=== PATIENT | female | born 1965 | race Caucasian/White ===

== ENCOUNTER 2019-01-13 19:18 | Emergency (ER) | payer BC ==
[2019-01-13 19:48] VITALS: BMI 27.8
[2019-01-13 19:57] VITALS: RESP 18; TEMP 98; O2SAT 100
[2019-01-13] MEDS: Sodium Chloride 0.9% 500 ML IV STA (20:34)
[2019-01-13 20:54] LABS: BASO # 0.03 K/mm3 (0.0-2.0); BASO % 0.5 % (0.0-3.0); EOS # 0.1 (0.0-0.7); EOS % 2.2 % (1.5-5.0); HEMOGLOBIN 11.9 g/dL (12.0-16.0); LYMPH # 2.5 (1.2-3.4); LYMPH % 41.5 % (22.0-35.0); MEAN CELL VOLUME 88.5 fl (80.0-105.0); MEAN CORPUSCULAR HGB CONC 31.6 g/dl (31.0-37.0); MEAN PLATELET VOLUME 10.7 fl (7.0-11.0); MONO # 0.4 (0.1-0.6); MONO % 6.5 % (1.0-6.0); RBC 4.25 10^6/uL (3.5-6.1); RED CELL DISTRIBUTION WIDTH 13.2 % (11.5-14.5)
--- NOTE | 2019-01-13 21:21 | ED PDOC ---
Arrival/HPI - General Chief Complaint: Abdominal Pain Time Seen by Provider: 01/13/19 19:23 Historian: Patient - History of Present Illness Narrative History of Present Illness (Text): 01/13/19 21:13 53 year old female, with no significant past medical history, presents to the emergency department with intermittent RUQ pain, since Aug 2017. Patient states the pain has worsened today and describes it as a sharp pain. Patient states pain wraps around the right side of her abdomen to the right back. Patient denies chest pain or shortness of breath. Patient informs no medication was taken at home for the pain. Patient states pain seems to worsen after eating. Patient denies any vomiting, diarrhea, constipation or urinary symptoms but is c/o nausea. Time/Duration: Prior to Arrival, Other (> 1 year ) Symptom Onset: Gradual Quality: Stabbing Activities at Onset: Light Context: Home Past Medical History - Provider Review Nursing Documentation Reviewed: Yes - Travel History Have you recently traveled outside [place] w/in the past 3 mons?: No - Infectious Disease Hx of Infectious Diseases: None - Reproductive Menopause: Yes - Cardiac Hx Cardiac Disorders: No - Pulmonary Hx Respiratory Disorders: No - Neurological Hx Neurological Disorder: No - HEENT Hx HEENT Disorder: No - Renal Hx Renal Disorder: Yes Hx Kidney Stones: Yes - Endocrine/Metabolic Hx Endocrine Disorders: No - Hematological/Oncological Hx Blood Disorders: No - Integumentary Hx Dermatological Disorder: No - Musculoskeletal/Rheumatological Hx Musculoskeletal Disorders: No - Gastrointestinal Hx Gastrointestinal Disorders: No - Genitourinary/Gynecological Hx Genitourinary Disorders: No - Psychiatric Hx Psychophysiologic Disorder: No Hx Substance Use: No - Surgical History Other/Comment: lithotripsy - Anesthesia Hx Anesthesia: Yes Hx Anesthesia Reactions: No Hx Malignant Hyperthermia: No Family/Social History - Physician Review Nursing Documentation Reviewed: Yes Family/Social History: No Known Family HX Smoking Status: Never Smoked Hx Alcohol Use: No Hx Substance Use: No Allergies/Home Meds Allergies/Adverse Reactions: Allergies No Known Allergies Allergy (Verified 01/13/19 19:49) Review of Systems - Physician Review All systems were reviewed & negative as marked: Yes - Review of Systems Constitutional: absent: Fatigue, Fevers Respiratory: absent: SOB, Cough Cardiovascular: absent: Chest Pain, Palpitations Gastrointestinal: Abdominal Pain, Nausea. absent: Constipation, Diarrhea, Vomiting Genitourinary Female: Normal. absent: Urine Output Changes Musculoskeletal: Back Pain. absent: Arthralgias, Neck Pain Skin: absent: Rash, Pruritis Neurological: absent: Headache, Dizziness Psychiatric: absent: Anxiety, Depression Physical Exam Vital Signs Reviewed: Yes Vital Signs Temp Pulse Resp BP Pulse Ox 01/13/19 19:57 98 F 64 18 116/72 100 Temperature: Afebrile Blood Pressure: Normal Pulse: Regular Respiratory Rate: Normal Appearance: Positive for: Well-Appearing, Non-Toxic, Comfortable Pain Distress: None Mental Status: Positive for: Alert and Oriented X 3 - Systems Exam Head: Present: Atraumatic Conjunctiva: Present: Normal Mouth: Present: Moist Mucous Membranes Neck: Present: Normal Range of Motion Respiratory/Chest: Present: Clear to Auscultation, Good Air Exchange. No: Respiratory Distress, Accessory Muscle Use Cardiovascular: Present: Regular Rate and Rhythm, Normal S1, S2. No: Murmurs Abdomen: Present: Tenderness (RUQ), Guarding. No: Distention, Peritoneal Signs, Rebound, McBurney's Point Tender Back: Present: Normal Inspection, CVA Tenderness (Right sided). No: Midline Tenderness Upper Extremity: Present: Normal Inspection Neurological: Present: GCS=15, Speech Normal Skin: Present: Warm, Dry, Normal Color. No: Rashes Psychiatric: Present: Alert, Oriented x 3 Medical Decision Making ED Course and Treatment: 01/13/19 21:36 Impression: 53 year old female presents with RUQ pain. Plan: -- CT ABD & Pelvis -- CMP, Lipase -- Chest X-ray -- Morphine -- Zofran -- Urinalysis -- Urinalysis -- Reassess and disposition Prior Visits: Notes and results from previous visits were reviewed. Progress Notes: 01/13/19 22:32 Patient is nontoxic well appearing with stable vital signs presenting with right abdominal pain pt refused morphine for pain. CBC:wnl CMP: wnl Lipase: wnl Urinalysis: + blood, + leukocytes, + wbcs cxr; wnl Ultrasound: COMMENTS: The liver is of increased echogenicity without evidence of mass or defect measuring 13.16 x 11.51 cm. There is no intra or extrahepatic biliary ductal dilatation. The common bile duct measures 0.35 cm. The gallbladder is physiologically distended without evidence of calculi. The gallbladder wall is not thickened measuring 0.16 cm and there is no pericholecystic fluid. There is no abdominal ascites. The visualized portions of abdominal aorta and inferior vena cava present no abnormalities. The visualized portions of the pancreas are unremarkable. The spleen is of uniform echo texture and does not appear enlarged measuring 9.12 x 3.72 cm. The right kidney measures 9.53 x 3.8 x 5.62 cm and the left kidney measures 10.16 x 4.53 x 5.1 cm. Right renal stone measures 0.31 x 0.17 x 0.2 cm. Left renal stone measures 1.02 x 0.54 x 0.69 cm with mild obstruction. IMPRESSION: 1. Fatty liver. 2. Right renal non-obstructing stone. 3. Left renal mildly obstructing stone. Electronically signed on Jan 13, 2019 9:40:07 PM EDT by: Mansoor Hernandez M.D., FEDE Certified By ABR & CBC[facility] Fellowship Trained MRI and CT Specialist CAT scan: COMMENTS: Uncomplicated colonic diverticulosis. Moderate amount of fecal residue in the large bowels. Hepatic steatosis. Fat containing umbilical hernia without incarceration. Nonobstructing left renal stones with the largest measuring 6 mm. 1.3 cm right renal simple cyst. Mild diffuse thickening of the bladder. The liver is of uniform attenuation without mass or defect. There is no intra or extrahepatic biliary ductal dilatation. The spleen is normal. The gallbladder is within normal limits. The pancreas is of normal contour and attenuation characteristics. There is no evidence of adrenal mass. Both kidneys demonstrate prompt and equal nephrograms. The kidneys are normal in size, shape and configuration. There is no evidence of renal or ureteral mass. No ureteral calculi are identified. There is no hydroureter or hydronephrosis. No evidence for appendicitis. There is no bowel wall thickening. No evidence for small or large bowel obstruction. There is no evidence of abdominal ascites or lymphadenopathy. There is no evidence of intrinsic or extrinsic bladder mass. There is no pelvic ascites or lymphadenopathy. Images of the lung bases show no evidence of pleural or parenchymal mass. There are no pleural effusions. The bony structures are free of lytic or blastic lesions. IMPRESSION: Uncomplicated colonic diverticulosis. Moderate amount of fecal residue in the large bowels. Hepatic steatosis. Fat containing umbilical hernia without incarceration. Nonobstructing left renal stones with the largest measuring 6 mm. 1.3 cm right renal simple cyst. Mild diffuse thickening of the bladder. Thank you for your kind referral of this patient. Electronically signed on Jan 14, 2019 1:55:06 AM EDT by: Regi Huerta M.D., Certified by ABR, MSK, Neuroradiology Patient reassessment: pt feeling better after medications; vitals stable. pt given keflex for pyelonephritis Discussed all results with patient in depth. I advised follow-up with the urologist, the GI specialist and the surgeon within the next 2 days. I advised taking antibiotics as prescribed for possible pyelonephritis. I have advised M otrin every 6 hours as needed for pain and I have advised immediate return if symptoms worsen persist or if new concerning symptoms develop Patient verbalizes understanding of discharge instructions and need for immediate followup. All aspects of this case were discussed the attending of record. Impression: Abdominal pain, pyelonephritis, kidney stone, biliary colic. Motrin every 6 hours as needed for pain Keflex twice daily x 10 days Follow up with primary care physician within the next 2 days Follow-up with the urologist within the next 2 days Follow-up with a GI specialist within the next 2 days Follow-up with the surgeon within the next 2 days Increase fluids Return immediately if symptoms worsen persist or if new symptoms develop: High fevers, increasing pain, vomiting, diarrhea or any other concerning symptoms develop Reassessment Condition: Re-examined, Improved - RAD Interpretation Radiology Orders: 01/13/19 20:03 CHEST PORTABLE [RAD] Stat 01/13/19 20:32 ABDOMEN COMPLETE [US] Stat - Medication Orders Current Medication Orders: Discontinued Medications Sodium Chloride (Sodium Chloride 0.9%) 500 mls @ 999 mls/hr IV .Q31M STA Stop: 01/13/19 20:33 Last Admin: 01/13/19 20:34 Dose: 999 mls/hr eMAR Start Stop Document 01/13/19 20:34 SS (Rec: 01/13/19 20:34 SS [id number]) Intravenous Solution Start Date 01/13/19 Start Time 20:34 End Date 01/13/19 End time 21:04 Total Infusion Time 30 Morphine Sulfate (Morphine) 2 mg IVP STAT STA Stop: 01/13/19 20:34 Ondansetron HCl (Zofran Inj) 4 mg IVP STAT STA Stop: 01/13/19 20:34 - Scribe Statement The provider has reviewed the documentation as recorded by the Veronica Madrigal Provider Scribe Attestation: All medical record entries made by the Zullyibe were at my direction and personally dictated by me. I have reviewed the chart and agree that the record accurately reflects my personal performance of the history, physical exam, medical decision making, and the department course for this patient. I have also personally directed, reviewed, and agree with the discharge instructions and disposition. Disposition/Present on Arrival - Present on Arrival Any Indicators Present on Arrival: No History of DVT/PE: No History of Uncontrolled Diabetes: No Urinary Catheter: No History of Decub. Ulcer: No History Surgical Site Infection Following: None - Disposition Have Diagnosis and Disposition been Completed?: Yes Diagnosis: Pyelonephritis, Abdominal pain, Biliary colic Disposition: HOME/ ROUTINE Disposition Time: 23:50 Patient Plan: Discharge Patient Problems: Current Active Problems Problem Status Onset Abdominal pain Acute Biliary colic Acute Pyelonephritis Acute Condition: GOOD Discharge Instructions (ExitCare): Flank Pain (DC), Kidney Infection (DC), Acute Abdomen (Belly Pain), Adult (DC) Additional Instructions: Motrin every 6 hours as needed for pain Keflex twice daily x 10 days Follow up with primary care physician within the next 2 days Follow-up with the urologist within the next 2 days Follow-up with a GI specialist within the next 2 days Follow-up with the surgeon within the next 2 days Increase fluids Return immediately if symptoms worsen persist or if new symptoms develop: High fevers, increasing pain, vomiting, diarrhea or any other concerning symptoms develop Prescriptions: Cephalexin [Keflex] 500 mg PO BID #20 capsule Ibuprofen [Motrin] 600 mg PO Q6H PRN #20 tab PRN Reason: pain/fever reduction Referrals: Daryl Vazquez MD [Staff Provider] - Follow up with primary Dhruv Naqvi MD [Medical Doctor] - Follow up with primary Ruth Contreras MD [Staff Provider] - Follow up with primary Rogelio Polanco MD [Non-Staff] - Follow up with primary Forms: [facility] (Slovak), WORK NOTE
[2019-01-13] MEDS: Morphine 2 mg/ml ISec IVP STA (21:55)
[2019-01-13 21:57] LABS: PH,URINE 6.5 (4.7-8.0); URINE BILIRUBIN NEGATIVE (NEGATIVE); URINE BLOOD SMALL (NEGATIVE); URINE GLUCOSE (UA) NEGATIVE (NEGATIVE); URINE LEUKOCYTE ESTERASE LARGE Leu/uL (NEGATIVE); URINE PROTEIN NEGATIVE mg/dL (<30 mg/dL); URINE UROBILINOGEN 0.2 E.U./dL (<1 E.U./dL)
[2019-01-13 22:06] LABS: URINE APPEARANCE CLOUDY (CLEAR); URINE COLOR YELLOW (YELLOW)
[2019-01-13 22:20] LABS: URINE BACTERIA MOD /hpf; URINE WBC 25 - 30 /hpf (0-6)
[2019-01-13] MEDS ORDERED: Iohexol 350 MG/100 ML VIAL ONE (22:21)
[2019-01-13 23:50] LABS: ALB/GLOB RATIO 1.3 (1.1-1.8); ALBUMIN 4.2 g/dL (3.0-4.8); ALT/SGPT 29 U/L (7-56); AST/SGOT 22 U/L (14-36); BLOOD UREA NITROGEN 11 mg/dL (7-21); CALCIUM 9.5 mg/dL (8.4-10.5); GFR NON-AFRICAN AMERICAN > 60; LIPASE 109 U/L (23-300)
[2019-01-14 01:33] VITALS: BP 118/79
[2019-01-14 01:46] VITALS: PULSE 65
--- NOTE | 2019-01-14 08:34 | RAD ---
Date of service: 01/13/2019 HISTORY: abd pain COMPARISON: No prior. TECHNIQUE: 1 view obtained. FINDINGS: LUNGS: No active pulmonary disease. PLEURA: No significant pleural effusion identified, no pneumothorax apparent. CARDIOVASCULAR: No aortic atherosclerotic calcification present. Normal cardiac size. No pulmonary vascular congestion. OSSEOUS STRUCTURES: No significant abnormalities. VISUALIZED UPPER ABDOMEN: Normal. OTHER FINDINGS: None. IMPRESSION: No acute cardiopulmonary disease appreciated.
--- NOTE | 2019-01-14 09:43 | CARD ---
APPROVED REPORT Date of service: 01/13/2019 EKG Measurement Heart [id number] [id number] <Conclusion> Normal sinus rhythm Normal ECG
--- NOTE | 2019-01-14 10:04 | CT ---
Date of service: 01/14/2019 PROCEDURE: CT Abdomen and Pelvis with contrast HISTORY: right sided abd pain COMPARISON: None. TECHNIQUE: Contrast dose: 100 cc of Omni 350 Radiation dose: Total exam DLP = 644.7 mGy-cm. This CT exam was performed using one or more of the following dose reduction techniques: Automated exposure control, adjustment of the mA and/or kV according to patient size, and/or use of iterative reconstruction technique. FINDINGS: LOWER THORAX: Unremarkable. LIVER: Unremarkable. No gross lesion or ductal dilatation. Fatty infiltration of the liver GALLBLADDER AND BILE DUCTS: Unremarkable. PANCREAS: Unremarkable. No gross lesion or ductal dilatation. SPLEEN: Unremarkable. ADRENALS: Unremarkable. No mass. KIDNEYS AND URETERS: Unremarkable. No hydronephrosis. No solid mass. Nonobstructing 6 mm stone in the left kidney VASCULATURE: Unremarkable. No aortic aneurysm. No aortic atherosclerotic calcification or mural plaque present. BOWEL: Unremarkable. No obstruction. No gross mural thickening. Mild constipation APPENDIX: Normal appendix. PERITONEUM: Unremarkable. No free fluid. No free air. LYMPH NODES: Unremarkable. No enlarged lymph nodes. BLADDER: Unremarkable. REPRODUCTIVE: Unremarkable. BONES: No acute fracture. OTHER FINDINGS: The report concurs with the preliminary [facility] report IMPRESSION: No acute intra-abdominal findings
--- NOTE | 2019-01-14 10:56 | US ---
Date of service: 01/13/2019 HISTORY: ruq pain COMPARISON: None. TECHNIQUE: Sonographic evaluation of the abdomen. FINDINGS: LIVER: Measures 13.2 cm. Upper limits normal echogenicity of the liver parenchyma and normal directional blood flow is seen at the main portal vein. No mass. No intrahepatic bile duct dilatation. GALLBLADDER: Unremarkable. No gallstones. COMMON BILE DUCT: Measures 3.5 mm. No stones. No dilatation. PANCREAS: Unremarkable as visualized. No mass. No ductal dilatation. RIGHT KIDNEY: Measures 9.5cm. A 3 mm cyst identified at the midpole right kidney with adjacent small calcification in question. Right renal parenchyma is otherwise unremarkable. No obstructive uropathy perinephric fluid collection appreciable. LEFT KIDNEY: Measures 10.2cm. Intrarenal calculus identified at the lower pole left kidney, nonobstructive 1.0 cm greatest dimension. Left kidney is otherwise unremarkable. SPLEEN: Normal in size and contour, measuring 9.1 cm.. No mass. AORTA: No aneurysmal dilatation. IVC: Unremarkable. OTHER FINDINGS: None. IMPRESSION: Intrarenal calculus lower pole left kidney 1 cm greatest dimension nonobstructive. Parenchymal small cyst midpole right kidney with adjacent or possible mural calcification by ultrasound. Examination otherwise unremarkable. Preliminary report provided by Abigail, 01/13/2019, 9:40 p.m.. Discordant with respect to left-sided obstructive uropathy, which I do not see, and fatty liver with liver appearing upper limits normal echogenicity.
== END 2019-01-14 02:25 | disposition home or self-care (01) ==
LOC: ED 19:18
DX: N12 Tubulo-interstitial nephritis, not specified as acute or chronic (principal); K80.50 Calculus of bile duct without cholangitis or cholecystitis without obstruction; R10.11 Right upper quadrant pain
CPT/HCPCS: 71045; 74177; 76700; 80053; 81001; 83690; 85025; 87086; 93005; 96374; 99284; J1885; J7040; Q9967

== ENCOUNTER 2019-01-14 12:46 | Emergency (ER) | payer BC ==
[2019-01-14 12:47] VITALS: BMI 27.8
[2019-01-14 13:03] VITALS: RESP 18; TEMP 98.5
[2019-01-14] MEDS ORDERED: Morphine 4 mg/ml ISec IVP STA (13:07)
[2019-01-14] MEDS ORDERED: Sodium Chloride 0.9% 500 ML IV STA (13:09)
[2019-01-14] MEDS ORDERED: Alum-Mag Hydrox-Simethicone Susp (30 mL) PO STA (13:09)
--- NOTE | 2019-01-14 13:22 | ED PDOC ---
Arrival/HPI - General Chief Complaint: Abdominal Pain Time Seen by Provider: 01/14/19 12:59 Historian: Patient - History of Present Illness Narrative History of Present Illness (Text): 01/14/19 13:11 53 year old female, with no significant past medical history, returns to the ED for evaluation of persistent right sided abdominal pain radiating to her back since August,. Patient reports she was seen in the ED last night for similar complaints and was discharged home after negative CT scan of Abdomen/pelvis w/ IV contrast, Chest X-ray and labs. Patient additionally had an US performed during her visit, which showed 1 cm intrarenal calculus and right kidney cyst. Patient discharged with Keflex and Motrin for pyelonephritis. Patient reports persistent pain since discharge, prompting her to return to the ED for further evaluation. Patient notes associated nausea and dysuria but denies any other somatic complaints. Patient denies any rash, fevers, chills, headache, dizziness, chest pain, shortness of breath, dyspnea on exertion, cough, vomiting, diarrhea, changes in bowel movement, back pain, neck pain, or any other complaints. Patient reports history of colonoscopy and endoscopy with no significant findings. Patient denies any abdominal surgeries in the past. PMD: [place] Time/Duration: Other (Since August 2017) Symptom Onset: Gradual Symptom Course: Unchanged Activities at Onset: Light Context: Home Past Medical History - Provider Review Nursing Documentation Reviewed: Yes - Infectious Disease Hx of Infectious Diseases: None - Cardiac Hx Cardiac Disorders: No - Pulmonary Hx Respiratory Disorders: No - Neurological Hx Neurological Disorder: No - HEENT Hx HEENT Disorder: No - Renal Hx Renal Disorder: Yes Hx Kidney Stones: Yes - Endocrine/Metabolic Hx Endocrine Disorders: No - Hematological/Oncological Hx Blood Disorders: No - Integumentary Hx Dermatological Disorder: No - Musculoskeletal/Rheumatological Hx Musculoskeletal Disorders: No - Gastrointestinal Hx Gastrointestinal Disorders: No - Genitourinary/Gynecological Hx Genitourinary Disorders: No - Psychiatric Hx Psychophysiologic Disorder: No Hx Substance Use: No - Surgical History Other/Comment: lithotripsy - Anesthesia Hx Anesthesia: Yes Hx Anesthesia Reactions: No Hx Malignant Hyperthermia: No Family/Social History - Physician Review Nursing Documentation Reviewed: Yes Family/Social History: No Known Family HX Smoking Status: Never Smoked Hx Alcohol Use: No Hx Substance Use: No Allergies/Home Meds Allergies/Adverse Reactions: Allergies No Known Allergies Allergy (Verified 01/13/19 19:49) Review of Systems - Review of Systems Constitutional: absent: Fevers Eyes: absent: Vision Changes Respiratory: absent: SOB, Cough Cardiovascular: absent: Chest Pain, AMBROSIO Gastrointestinal: Abdominal Pain, Nausea. absent: Stool Changes, Diarrhea, Vomiting, Appetite Changes, Hematemesis Genitourinary Female: Dysuria. absent: Frequency, Hematuria, Urine Output Changes, Vaginal Bleeding, Vaginal Discharge Musculoskeletal: absent: Back Pain, Neck Pain Skin: absent: Rash, Skin Lesions Neurological: absent: Headache, Dizziness Endocrine: absent: Diaphoresis Psychiatric: absent: Anxiety Physical Exam Vital Signs Reviewed: Yes Vital Signs Temp Pulse Resp BP Pulse Ox 01/14/19 13:00 98.5 F 73 18 93/63 L 99 Temperature: Afebrile Blood Pressure: Normal Pulse: Regular Respiratory Rate: Normal Appearance: Positive for: Well-Appearing, Non-Toxic, Comfortable Pain Distress: None Mental Status: Positive for: Alert and Oriented X 3 - Systems Exam Head: Present: Atraumatic, Normocephalic Pupils: Present: PERRL Extroacular Muscles: Present: EOMI Conjunctiva: Present: Normal Mouth: Present: Moist Mucous Membranes Neck: Present: Normal Range of Motion Respiratory/Chest: Present: Clear to Auscultation, Good Air Exchange. No: Respiratory Distress, Accessory Muscle Use Cardiovascular: Present: Regular Rate and Rhythm, Normal S1, S2. No: Murmurs Abdomen: Present: Tenderness (Right upper quadrant tenderness, nontender when distracted). No: Distention, Peritoneal Signs Back: Present: Normal Inspection Upper Extremity: Present: Normal Inspection. No: Cyanosis, Edema Lower Extremity: Present: Normal Inspection. No: Edema Neurological: Present: GCS=15, Speech Normal Skin: Present: Warm, Dry, Normal Color. No: Rashes Psychiatric: Present: Alert, Oriented x 3, Normal Insight, Normal Concentration Medical Decision Making ED Course and Treatment: 01/14/19 13:09 Impression: 53 year old female presents to the ED for evaluation of abdominal pain x years. Negative workup yesterday Plan: -- EKG -- Labs -- Maalox -- Morphine -- Pepcid -- IV Fluids -- Culture -- Urinalysis -- Reassess and disposition Prior Visits: Notes and results from previous visits were reviewed. Progress Notes: 01/14/19 14:16 EKG shows NSR at 63bpm with normal intervals and no st changes 01/14/19 15:19 Patient refuses Pepcid, Maalox and Morphine and requests what was given yesterday. Chart review shows, she was given Zofran yesterday. 01/14/19 15:22 Patient now agreeable to all the offered medications, after daughter convinced her for so. 01/14/19 15:[address] Polanco. Recommends continuing antibiotics for uti started yesterday and discharge with GI follow-up. Patient reports that the pain seems to be triggered by stress. Spoke to daughter and patient at length and report understanding of need to follow-up with GI. Ambulated out of ED without issue. - Medication Orders Current Medication Orders: Sodium Chloride (Sodium Chloride 0.9%) 500 mls @ 999 mls/hr IV .Q31M STA Stop: 01/14/19 13:39 Discontinued Medications Al Hydrox/Mg Hydrox/Simethicone (Maalox Plus 30 Ml) 30 ml PO STAT STA Stop: 01/14/19 13:10 Famotidine (Pepcid) 20 mg IVP STAT STA Stop: 01/14/19 13:10 Morphine Sulfate (Morphine) 4 mg IVP STAT STA Stop: 01/14/19 13:08 - Scribe Statement The provider has reviewed the documentation as recorded by the Scribe Floridalma Gonzales. All medical record entries made by the Scribe were at my direction and personally dictated by me. I have reviewed the chart and agree that the record accurately reflects my personal performance of the history, physical exam, medical decision making, and the department course for this patient. I have also personally directed, reviewed, and agree with the discharge instructions and disposition. Disposition/Present on Arrival - Present on Arrival Any Indicators Present on Arrival: No History of DVT/PE: No History of Uncontrolled Diabetes: No Urinary Catheter: No History of Decub. Ulcer: No History Surgical Site Infection Following: None - Disposition Have Diagnosis and Disposition been Completed?: Yes Diagnosis: Abdominal pain, UTI (urinary tract infection) Disposition: HOME/ ROUTINE Disposition Time: 15:55 Patient Plan: Discharge Condition: GOOD Discharge Instructions (ExitCare): Urinary Tract Infections in Adults, Chronic Pain (DC) Additional Instructions: Follow-up with GI. Follow-up with PMD within 2 days. Return to ED if condition worsens. Take antibiotics prescribed for uti yesterday. Take pepcid daily Prescriptions: Famotidine [Pepcid] 40 mg PO DAILY #30 tab Referrals: Amrita Polanco MD [Primary Care Provider] - Follow up with primary Dhruv Naqvi MD [Medical Doctor] - Follow up with primary Forms: [facility] (Armenian), WORK NOTE
[2019-01-14 13:44] LABS: PH,URINE 6.5 (4.7-8.0); URINE BILIRUBIN NEGATIVE (NEGATIVE); URINE BLOOD TRACE-INTACT (NEGATIVE); URINE GLUCOSE (UA) NEGATIVE (NEGATIVE); URINE LEUKOCYTE ESTERASE SMALL Leu/uL (NEGATIVE); URINE PROTEIN NEGATIVE mg/dL (<30 mg/dL); URINE UROBILINOGEN 0.2 E.U./dL (<1 E.U./dL)
[2019-01-14 13:46] LABS: URINE APPEARANCE CLEAR (CLEAR); URINE COLOR YELLOW (YELLOW)
[2019-01-14 14:01] LABS: URINE BACTERIA FEW /hpf; URINE EPITHELIAL CELLS 0 - 2 /hpf (0-5); URINE RBC 0 - 2 /hpf (0-2); URINE WBC 0 - 2 /hpf (0-6)
[2019-01-14 14:49] LABS: BASO # 0.03 K/mm3 (0.0-2.0); BASO % 0.5 % (0.0-3.0); EOS # 0.1 (0.0-0.7); HEMOGLOBIN 12.3 g/dL (12.0-16.0); LYMPH # 2.7 (1.2-3.4); LYMPH % 47.6 % (22.0-35.0); MEAN CELL VOLUME 88.4 fl (80.0-105.0); MEAN CORPUSCULAR HEMOGLOBIN 28.1 pg (25.0-35.0); MEAN CORPUSCULAR HGB CONC 31.8 g/dl (31.0-37.0); MEAN PLATELET VOLUME 11.3 fl (7.0-11.0); MONO # 0.3 (0.1-0.6); MONO % 5.2 % (1.0-6.0); RBC 4.38 10^6/uL (3.5-6.1); RED CELL DISTRIBUTION WIDTH 13.2 % (11.5-14.5); WHITE BLOOD COUNT 5.6 10^3/uL (4.5-11.0)
--- NOTE | 2019-01-14 14:53 | CARD ---
APPROVED REPORT Date of service: 01/14/2019 EKG Measurement Heart [id number] <Conclusion> Normal sinus rhythm Normal ECG
[2019-01-14 15:06] LABS: ALB/GLOB RATIO 1.3 (1.1-1.8); ALBUMIN 4.4 g/dL (3.0-4.8); ALT/SGPT 23 U/L (7-56); AST/SGOT 29 U/L (14-36); BLOOD UREA NITROGEN 12 mg/dL (7-21); GFR NON-AFRICAN AMERICAN > 60; LIPASE 124 U/L (23-300)
[2019-01-14 15:10] LABS: TROPONIN I < 0.01 ng/mL
[2019-01-14 15:27] VITALS: O2SAT 99
[2019-01-14 17:04] VITALS: BP 132/73; PULSE 56
== END 2019-01-14 16:52 | disposition home or self-care (01) ==
LOC: ED 12:46
DX: N39.0 Urinary tract infection, site not specified (principal); R10.9 Unspecified abdominal pain; Z87.442 Personal history of urinary calculi
CPT/HCPCS: 80053; 81001; 81025; 83690; 84484; 85025; 87086; 93005; 96374; 96375; 99284; J2270; J7040